=== PATIENT | female | born 1990 | race Two or more races ===

== ENCOUNTER 2021-05-20 21:01 | Inpatient (IN) | payer OTHER, MEDICAID ==
[~2021-05-20] VITALS: Ht 162.6 cm; Wt 48.8 kg
[2021-05-20 22:01] LABS: Basophils # (auto) 0.1 10 ^3/uL (0-0.2); Basophils % (auto) 0.6 % (0.0-2.0); Eosinophils # (auto) 0 10 ^3/uL (0-0.8); Eosinophils % (auto) 0.2 % (0.0-7.0); Hematocrit 47.3 % (36.0-46.0); Hemoglobin 15.5 g/dL (12.2-16.2); Lymphocytes % (auto) 19.1 % (10.0-50.0); Mean Corpuscular Hemoglobin 30.8 pg (28.0-32.0); Mean Corpuscular Hgb Conc. 32.9 g/dL (32.0-36.0); Mean Corpuscular Volume 93.5 fL (80.0-100.0); Monocytes # (auto) 0.4 10 ^3/uL (0-1.3); Monocytes % (auto) 3.6 % (0.0-12.0); Neutrophils # (auto) 8.1 10 ^3/uL (1.6-8.6); Neutrophils % (auto) 76.5 % (37.0-80.0); Nucleated Red Blood Cells % 0.2 %; Red Blood Cells 5.05 10^6/uL (4.0-5.20); Red Cell Distribution Width 14.3 % (11.8-14.3); White Blood Cell 10.5 10^3/uL (4.4-10.8)
[2021-05-20 22:20] LABS: Albumin 4.4 g/dL (3.4-5.0); BUN/Creatinine Ratio 19.3; Calcium 9.3 mg/dL (8.5-10.1); Potassium 4.5 mmol/L (3.5-5.1)
[2021-05-20 22:23] LABS: Bilirubin, Total 0.6 mg/dL (0.2-1.0); Total Protein 8.7 g/dL (6.4-8.2)
[2021-05-21] MEDS ORDERED: INSULIN LANTUS (GLARGINE) 1 /0.01ml (100units/ml) SC ONE ×2 (02:00→02:47)
[2021-05-21] MEDS ORDERED: DEXTROSE (50%) 50ML SYRG IV PRN ×2 (02:00→13:00)
[2021-05-21] MEDS ORDERED: ONDANSETRON HCL 4 MG/2 ML VIAL ONE ×2 (02:38→04:12)
[2021-05-21] MEDS: ACCU-CHEK COMFORT CURVE STRIP VI SCH ×7 (03:00→17:58)
[2021-05-21] MEDS: SODIUM CHLORIDE 0.9% 1,000 ML IV SCH ×6 (03:00→22:56)
[2021-05-21 03:08] LABS: BUN/Creatinine Ratio 14.3; Magnesium 2.2 mg/dL (1.6-2.6); Phosphorus 5.1 mg/dL (2.5-4.90); Potassium 4.7 mmol/L (3.5-5.1)
[2021-05-21] MEDS: InsuLIN R (HUMAN) 100 UNITS in SODIUM CHL 0.9% 99 ML IV SCH ×2 (03:40→11:25)
[2021-05-21] MEDS ORDERED: POTASSIUM CHL 10MEQ/50ML 50 ML IV ONE ×2 (03:50→04:52)
[2021-05-21] MEDS: POTASSIUM CHL 10MEQ/50ML 50 ML IV SCH ×2 (03:55→04:50)
[2021-05-21 05:22] LABS: Urine Bacteria FEW /hpf (None Seen); Urine Blood Negative /uL (Negative); Urine Mucus FEW (None Seen); Urine Specific Gravity 1.015 (1.001-1.035); Urine WBC 7 /hpf (0 - 5)
[2021-05-21] MEDS ORDERED: SODIUM CHLORIDE 0.9% 1,000 ML IV SCH (06:00)
[2021-05-21] MEDS ORDERED: MORPHINE SULFATE INJECTION 2 MG/ML SYRG IV PRN (07:15)
[2021-05-21] MEDS ORDERED: NITROGLYCERIN 0.4 MG SL TAB SL PRN (07:15)
[2021-05-21] MEDS ORDERED: ONDANSETRON HCL 4 MG/2 ML VIAL IV PRN (07:15)
[2021-05-21] MEDS ORDERED: SODIUM BICARBONATE 50ML VIAL 100 ML in SOD CHL 0.45% 1,000 ML IV ONE (07:15)
[2021-05-21] MEDS ORDERED: SODIUM BICARBONATE 8.4 % INJ 50ML VIAL IV ONE (07:15)
[2021-05-21] MEDS: cefTRIAXone 1GM/50ML D5W 50 ML IV SCH (09:00)
[2021-05-21 09:28] LABS: Anion Gap 13 (5-15); Blood Urea Nitrogen 10 mg/dL (7-18); Calcium 7.8 mg/dL (8.5-10.1); Chloride 123 mmol/L (98-107); Glucose 157 mg/dL (74-106); Potassium 4.3 mmol/L (3.5-5.1); Sodium 144 mmol/L (136-145)
[2021-05-21 09:31] LABS: BUN/Creatinine Ratio 12.8; GFR African American 113 mL/min; GFR Non-African American 93 mL/min
[2021-05-21] MEDS: PANTOPRAZOLE 40 MG/10 ML VIAL INJ IV SCH (12:11)
[2021-05-21 14:08] LABS: BUN/Creatinine Ratio 11.8; Calcium 7.6 mg/dL (8.5-10.1); Potassium 3.4 mmol/L (3.5-5.1)
[2021-05-21 15:15] LABS: Carbon Dioxide 8 mmol/L (21-32)
[2021-05-21] MEDS: InsuLIN REG 1unit/0.01ml Soln (100units/ml) SC SCH (17:58)
[2021-05-21 23:40] VITALS: BP 102/57
[2021-05-22 01:54] LABS: BUN/Creatinine Ratio 13.2; Calcium 7.7 mg/dL (8.5-10.1)
[2021-05-22 02:09] LABS: Potassium 2.6 mmol/L (3.5-5.1)
[2021-05-22] MEDS ORDERED: INSU100I26 SC (02:14)
[2021-05-22] MEDS ORDERED: INSU1INJ19 SC (02:14)
[2021-05-22] MEDS ORDERED: ACETAMINOPHEN 325 MG TAB PO PRN (04:45)
[2021-05-22] MEDS ORDERED: THROAT LOZENGES(CEPASTAT) MT PRN (04:45)
[2021-05-22 05:00] VITALS: BP 102/65
[2021-05-22] MEDS ORDERED: POTASSIUM CHL 10MEQ/50ML 50 ML IV SCH ×2 (05:00)
[2021-05-22] MEDS: POTASSIUM CHL 10MEQ/50ML 50 ML IV SCH ×9 (05:41→23:45)
[2021-05-22] MEDS: SODIUM CHLORIDE 0.9% 1,000 ML IV SCH ×4 (05:41→23:18)
[2021-05-22] MEDS: InsuLIN REG 1unit/0.01ml Soln (100units/ml) SC SCH ×5 (05:54→17:38)
[2021-05-22] MEDS: ACCU-CHEK COMFORT CURVE STRIP VI SCH ×4 (05:55→17:37)
[2021-05-22 08:07] LABS: Basophils # (auto) 0 10 ^3/uL (0-0.2); Basophils % (auto) 0.2 % (0.0-2.0); Eosinophils # (auto) 0.1 10 ^3/uL (0-0.8); Eosinophils % (auto) 1.8 % (0.0-7.0); Hematocrit 33.6 % (36.0-46.0); Hemoglobin 11.7 g/dL (12.2-16.2); Lymphocytes # (auto) 2.8 10 ^3/uL (0.4-5.4); Lymphocytes % (auto) 41.4 % (10.0-50.0); Mean Corpuscular Hgb Conc. 34.8 g/dL (32.0-36.0); Monocytes # (auto) 0.5 10 ^3/uL (0-1.3); Monocytes % (auto) 6.8 % (0.0-12.0); Neutrophils # (auto) 3.4 10 ^3/uL (1.6-8.6); Neutrophils % (auto) 49.8 % (37.0-80.0); Nucleated Red Blood Cells % 0.1 %; Red Blood Cells 3.77 10^6/uL (4.0-5.20); Red Cell Distribution Width 13.8 % (11.8-14.3); White Blood Cell 6.8 10^3/uL (4.4-10.8)
[2021-05-22 08:22] LABS: Albumin 2.6 g/dL (3.4-5.0); Calcium 7.4 mg/dL (8.5-10.1)
[2021-05-22 08:26] LABS: BUN/Creatinine Ratio 15.8; Bilirubin, Total 0.5 mg/dL (0.2-1.0); Total Protein 5.3 g/dL (6.4-8.2)
[2021-05-22 08:51] VITALS: BP 101/59
[2021-05-22 09:40] LABS: Potassium 2.7 mmol/L (3.5-5.1)
[2021-05-22] MEDS: cefTRIAXone 1GM/50ML D5W 50 ML IV SCH (10:24)
[2021-05-22] MEDS: PANTOPRAZOLE 40 MG/10 ML VIAL INJ IV SCH (10:25)
[2021-05-22 13:23] VITALS: BP 102/63
[2021-05-22 17:00] VITALS: BP 104/64
[2021-05-22 20:15] VITALS: BP 102/73
[2021-05-22 20:16] LABS: Albumin 2.6 g/dL (3.4-5.0); BUN/Creatinine Ratio 4.6; Calcium 7.7 mg/dL (8.5-10.1); Potassium 3.3 mmol/L (3.5-5.1)
[2021-05-22 20:19] LABS: Bilirubin, Total 0.4 mg/dL (0.2-1.0); Total Protein 5.5 g/dL (6.4-8.2)
[2021-05-22] MEDS ORDERED: INSULIN LANTUS (GLARGINE) 1 /0.01ml (100units/ml) SC SCH (22:00)
[2021-05-22] MEDS ORDERED: InsuLIN REG 1unit/0.01ml Soln (100units/ml) SC ONE (22:30)
[2021-05-23] MEDS: InsuLIN REG 1unit/0.01ml Soln (100units/ml) SC SCH ×2 (01:00→13:33)
[2021-05-23 04:32] VITALS: BP 103/67
[2021-05-23] MEDS: ACCU-CHEK COMFORT CURVE STRIP VI SCH ×3 (05:51→13:33)
[2021-05-23 09:00] VITALS: BP 103/65
[2021-05-23] MEDS ORDERED: POTASSIUM CHL 20 Meq TABLET PO ONE (09:00)
[2021-05-23] MEDS: cefTRIAXone 1GM/50ML D5W 50 ML IV SCH (10:26)
[2021-05-23] MEDS ORDERED: INSLANTI SC (10:27)
[2021-05-23] MEDS ORDERED: INSLISPI SC (10:27)
[2021-05-23] MEDS: PANTOPRAZOLE 40 MG/10 ML VIAL INJ IV SCH (10:27)
[2021-05-23] MEDS ORDERED: POTA-220 PO (10:30)
[2021-05-23 13:19] VITALS: BP 115/82
[2021-05-23 14:52] VITALS: BP 125/80
[2021-05-23 17:00] VITALS: BP 110/74
[2021-05-23] MEDS ORDERED: POTASSIUM CHL 20 Meq TABLET PO SCH (18:00)
== END 2021-05-23 17:28 | disposition home or self-care (01) | DRG 638 ==
LOC: ER 21:01 → TELE 05-21 07:03 → WEST WING 05-21 23:35
PROVIDERS: ADMIT Nurse Practitioner; ATTEND Family Medicine
DX: E10.10 Type 1 diabetes mellitus with ketoacidosis without coma (principal); N17.9 Acute kidney failure, unspecified; N39.0 Urinary tract infection, site not specified; E86.0 Dehydration; E87.6 Hypokalemia; Z20.822 Contact with and (suspected) exposure to COVID-19
CPT/HCPCS: 36415; 36600; 80048; 80053; 81001; 81025; 82010; 82805; 82962; 83615; 83690; 83735; 83930; 84100; 85025; 87081; 87426; 96361; 96365; 96367; 96372; 96375; 99291; C9113; G0378; J0696; J1815; J2405

== ENCOUNTER 2022-03-01 21:19 | Inpatient (IN) | payer MEDICAID, OTHER ==
[~2022-03-01] VITALS: Ht 162.6 cm; Wt 55.6 kg
[~2022-03-01 21:19] MED LIST: INSLANTI SC; INSLISPI SC; INSU100I26 SC; INSU1INJ19 SC; POTA-220 PO
[2022-03-01] MEDS ORDERED: SODIUM BICARBONATE 8.4 % INJ 50ML VIAL IV ONE (22:15)
[2022-03-01] MEDS ORDERED: INSULIN LANTUS (GLARGINE) 1 /0.01ml (100units/ml) SC ONE (22:15)
[2022-03-01] MEDS ORDERED: InsuLIN R (HUMAN) 100 UNITS in SODIUM CHL 0.9% 99 ML IV SCH (22:15)
[2022-03-01] MEDS ORDERED: InsuLIN REG 1unit/0.01ml Soln (100units/ml) IV ONE (22:15)
[2022-03-01] MEDS ORDERED: DEXTROSE (50%) 50ML SYRG IV PRN (22:15)
[2022-03-01 22:20] LABS: Eosinophils # (auto) 0 10 ^3/uL (0-0.8); Lymphocytes # (auto) 1.5 10 ^3/uL (0.4-5.4); Neutrophils # (auto) 8.1 10 ^3/uL (1.6-8.6); Nucleated Red Blood Cells % 0.2 %; Red Cell Distribution Width 14.7 % (11.8-14.3); White Blood Cell 10.2 10^3/uL (4.4-10.8)
[2022-03-01 22:22] LABS: Basophils # (auto) 0.1 10 ^3/uL (0-0.2); Basophils % (auto) 0.5 % (0.0-2.0); Eosinophils % (auto) 0.1 % (0.0-7.0); Hematocrit 54.5 % (36.0-46.0); Hemoglobin 16.7 g/dL (12.2-16.2); Lymphocytes % (auto) 14.8 % (10.0-50.0); Mean Corpuscular Hemoglobin 29.9 pg (28.0-32.0); Mean Corpuscular Hgb Conc. 30.7 g/dL (32.0-36.0); Mean Corpuscular Volume 97.3 fL (80.0-100.0); Monocytes # (auto) 0.6 10 ^3/uL (0-1.3); Monocytes % (auto) 5.4 % (0.0-12.0); Neutrophils % (auto) 79.2 % (37.0-80.0)
[2022-03-01 22:32] LABS: Alanine Aminotransferase 89 U/L (13-56); Albumin 3.8 g/dL (3.4-5.0); Anion Gap 26 (5-15); Aspartate Aminotransferase 79 U/L (15-37); BUN/Creatinine Ratio 8.6; Blood Urea Nitrogen 12 mg/dL (7-18); Calcium 8.6 mg/dL (8.5-10.1); Chloride 96 mmol/L (98-107); GFR African American 57 mL/min; GFR Non-African American 47 mL/min; Sodium 127 mmol/L (136-145)
[2022-03-01 22:46] LABS: Magnesium 2.5 mg/dL (1.6-2.6)
[2022-03-01] MEDS ORDERED: SODIUM BICARBONATE 8.4% INJ 50ML SYRINGE ONE (22:46)
[2022-03-01 22:51] LABS: Carbon Dioxide 5 mmol/L (21-32); Potassium 5.8 mmol/L (3.5-5.1)
[2022-03-01 22:52] LABS: Glucose 638 mg/dL (74-106)
[2022-03-01 22:53] LABS: Alkaline Phosphatase 215 U/L (45-117)
[2022-03-01 22:54] LABS: Bilirubin, Total 0.5 mg/dL (0.2-1.0); Total Protein 9.5 g/dL (6.4-8.2)
[2022-03-01] MEDS: ACCU-CHEK COMFORT CURVE STRIP VI SCH ×2 (23:01→23:57)
[2022-03-01] MEDS: SODIUM CHLORIDE 0.9% 1,000 ML IV SCH (23:08)
[2022-03-01 23:37] LABS: Urine Amorphous Crystal FEW /hpf (None Seen); Urine Bacteria FEW /hpf (None Seen); Urine Blood 2+ /uL (Negative); Urine Mucus FEW (None Seen); Urine Specific Gravity 1.027 (1.001-1.035); Urine WBC 1 /hpf (0 - 5)
[2022-03-02] MEDS: SODIUM CHLORIDE 0.9% 1,000 ML IV SCH ×3 (00:54→10:59)
[2022-03-02] MEDS: ACCU-CHEK COMFORT CURVE STRIP VI SCH ×11 (01:29→23:52)
[2022-03-02] MEDS ORDERED: SODIUM BICARBONATE 8.4 % INJ 50ML VIAL IV ONE (02:00)
[2022-03-02] MEDS ORDERED: SODIUM CHLORIDE 0.9% 1,000 ML IV SCH (02:15)
[2022-03-02] MEDS ORDERED: ONDANSETRON HCL 4 MG/2 ML VIAL IV ONE (02:45)
[2022-03-02 02:53] LABS: BUN/Creatinine Ratio 12.1; Calcium 7.9 mg/dL (8.5-10.1); Potassium 3.3 mmol/L (3.5-5.1)
[2022-03-02] MEDS ORDERED: ONDANSETRON HCL 4 MG/2 ML VIAL IV PRN (04:15)
[2022-03-02] MEDS ORDERED: DEXTROSE (50%) 50ML SYRG IV PRN ×2 (04:15→14:45)
[2022-03-02] MEDS ORDERED: NITROGLYCERIN 0.4 MG SL TAB SL PRN (04:15)
[2022-03-02] MEDS ORDERED: MORPHINE SULFATE INJ 2 MG/ml SYRG IV PRN (04:15)
[2022-03-02] MEDS ORDERED: INSULIN LANTUS (GLARGINE) 1 /0.01ml (100units/ml) SC ONE (04:15)
[2022-03-02] MEDS ORDERED: POTASSIUM CHL 20MEQ/100ML 100 ML IV ONE (04:15)
[2022-03-02 06:32] LABS: BUN/Creatinine Ratio 13.2; Calcium 6.8 mg/dL (8.5-10.1)
[2022-03-02 06:38] LABS: Potassium 2.9 mmol/L (3.5-5.1)
[2022-03-02] MEDS: PANTOPRAZOLE 40 MG/10 ML VIAL INJ IV SCH (09:43)
[2022-03-02] MEDS ORDERED: INSULIN LANTUS (GLARGINE) 1 /0.01ml (100units/ml) SC SCH (10:00)
[2022-03-02 10:53] LABS: Urine Bacteria NONE SEEN /hpf (None Seen); Urine Blood 2+ /uL (Negative); Urine Specific Gravity 1.021 (1.001-1.035); Urine WBC 1 /hpf (0 - 5)
[2022-03-02 13:14] LABS: Calcium 6.9 mg/dL (8.5-10.1); Potassium 3.1 mmol/L (3.5-5.1)
[2022-03-02 13:17] LABS: BUN/Creatinine Ratio 15.3
[2022-03-02] MEDS: POTASSIUM CHLORIDE 40 MEQ in SOD CHL 0.45% 1,000 ML IV SCH (14:45)
[2022-03-02] MEDS ORDERED: CALCIUM GLUC 1,000mg/50ml-NS 50 ML IV ONE ×2 (14:45→15:45)
[2022-03-02] MEDS: InsuLIN REG 1unit/0.01ml Soln (100units/ml) SC SCH ×2 (16:52→23:49)
[2022-03-02 19:18] LABS: BUN/Creatinine Ratio 8.3; Calcium 7.1 mg/dL (8.5-10.1)
[2022-03-02 20:28] LABS: Potassium 2.9 mmol/L (3.5-5.1)
[2022-03-03 01:02] LABS: BUN/Creatinine Ratio 10.6; Calcium 7.4 mg/dL (8.5-10.1); Potassium 3.2 mmol/L (3.5-5.1)
[2022-03-03] MEDS: POTASSIUM CHLORIDE 40 MEQ in SOD CHL 0.45% 1,000 ML IV SCH ×2 (01:21→12:19)
[2022-03-03 05:34] LABS: Basophils # (auto) 0 10 ^3/uL (0-0.2); Basophils % (auto) 0.2 % (0.0-2.0); Eosinophils # (auto) 0 10 ^3/uL (0-0.8); Eosinophils % (auto) 0.3 % (0.0-7.0); Hematocrit 36.4 % (36.0-46.0); Hemoglobin 12.1 g/dL (12.2-16.2); Lymphocytes # (auto) 2.5 10 ^3/uL (0.4-5.4); Lymphocytes % (auto) 48.3 % (10.0-50.0); Mean Corpuscular Hemoglobin 29.7 pg (28.0-32.0); Mean Corpuscular Hgb Conc. 33.3 g/dL (32.0-36.0); Mean Corpuscular Volume 89.4 fL (80.0-100.0); Monocytes # (auto) 0.4 10 ^3/uL (0-1.3); Monocytes % (auto) 7.8 % (0.0-12.0); Neutrophils # (auto) 2.3 10 ^3/uL (1.6-8.6); Neutrophils % (auto) 43.4 % (37.0-80.0); Red Blood Cells 4.08 10^6/uL (4.0-5.20); Red Cell Distribution Width 13.7 % (11.8-14.3); White Blood Cell 5.2 10^3/uL (4.4-10.8)
[2022-03-03 06:00] LABS: Albumin 2.4 g/dL (3.4-5.0); Calcium 7.7 mg/dL (8.5-10.1); Potassium 3.5 mmol/L (3.5-5.1)
[2022-03-03] MEDS: InsuLIN REG 1unit/0.01ml Soln (100units/ml) SC SCH ×4 (06:00→17:55)
[2022-03-03 06:04] LABS: BUN/Creatinine Ratio 8.9; Bilirubin, Total 0.3 mg/dL (0.2-1.0); Total Protein 5.5 g/dL (6.4-8.2)
[2022-03-03] MEDS: ACCU-CHEK COMFORT CURVE STRIP VI SCH ×3 (06:09→17:53)
[2022-03-03 09:00] VITALS: BP 109/80
[2022-03-03] MEDS: PANTOPRAZOLE 40 MG/10 ML VIAL INJ IV SCH (09:47)
[2022-03-03] MEDS: INSULIN LANTUS (GLARGINE) 1 /0.01ml (100units/ml) SC SCH (09:52)
[2022-03-03] MEDS ORDERED: guaiFENesin-DM 100/10mg/5ml SYR PO PRN (11:15)
[2022-03-03] MEDS ORDERED: TAMIFLU PO (11:23)
[2022-03-03] MEDS ORDERED: INSLANTI SC (11:23)
[2022-03-03] MEDS ORDERED: INSLISPI SC (11:23)
[2022-03-03] MEDS ORDERED: GLUC-7 VI ×2 (11:44)
[2022-03-03] MEDS: OSELTAMIVIR 75 MG CAP PO SCH ×2 (12:07→22:04)
[2022-03-03 12:30] VITALS: BP 114/73
[2022-03-03 16:47] VITALS: BP 114/80
[2022-03-03 20:00] VITALS: BP 112/66
[2022-03-03 21:30] VITALS: BP 112/66
[2022-03-04] MEDS ORDERED: InsuLIN REG 1unit/0.01ml Soln (100units/ml) SC SCH
[2022-03-04] MEDS: ACCU-CHEK COMFORT CURVE STRIP VI SCH ×3 (00:08→11:56)
[2022-03-04] MEDS: InsuLIN REG 1unit/0.01ml Soln (100units/ml) SC SCH ×3 (00:11→11:57)
[2022-03-04] MEDS: POTASSIUM CHLORIDE 40 MEQ in SOD CHL 0.45% 1,000 ML IV SCH (02:16)
[2022-03-04 05:42] VITALS: BP 107/66
[2022-03-04 09:00] VITALS: BP 115/68
[2022-03-04] MEDS: OSELTAMIVIR 75 MG CAP PO SCH (09:47)
[2022-03-04] MEDS: INSULIN LANTUS (GLARGINE) 1 /0.01ml (100units/ml) SC SCH (09:52)
[2022-03-04 13:00] VITALS: BP 112/71
== END 2022-03-04 14:50 | disposition home or self-care (01) | DRG 420 ==
LOC: ER 21:22 → TELE 03-02 04:14 → EAST 03-02 22:22
PROVIDERS: ADMIT Nurse Practitioner; ATTEND Nurse Practitioner Acute Care
DX: E10.10 Type 1 diabetes mellitus with ketoacidosis without coma (principal); N17.0 Acute kidney failure with tubular necrosis; E86.0 Dehydration; E87.6 Hypokalemia; Z20.822 Contact with and (suspected) exposure to COVID-19; J10.1 Influenza due to other identified influenza virus with other respiratory manifestations; E66.01 Morbid (severe) obesity due to excess calories; Z79.4 Long term (current) use of insulin; Z91.14 Patient's other noncompliance with medication regimen; Z68.21 Body mass index [BMI] 21.0-21.9, adult
CPT/HCPCS: 36415; 36600; 71045; 80048; 80053; 81001; 82010; 82805; 82962; 83735; 83930; 84100; 84702; 85025; 87081; 87426; 87804; 96361; 96365; 96367; 96372; 96375; 96376; 99291; C9113; G0378; J1815; J2405; J3480